=== PATIENT | female | born 2000 | race Caucasian/White ===

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

== ENCOUNTER → 2020-02-21 13:07 | Outpatient (CLI) | payer OTHER, SELFPAY ==
[2020-02-21 10:23] VITALS: BMI 24.3
[2020-02-21 18:20] LABS: Chlamydia Trachomatis by PCR Negative (Negative); Neisserai gonorrhoeae by PCR Negative (Negative); Probe Check PASS; Sample Adequacy Control PASS; Specimen Processing Control PASS
== END ==
PROVIDERS: PCP Family Medicine; Visit Provider Nurse Practitioner Women's Health
DX: A64 Unspecified sexually transmitted disease (principal)
CPT/HCPCS: 87491; 87591

== ENCOUNTER → 2021-07-08 17:52 | Outpatient (CLI) | payer OTHER, SELFPAY ==
[2021-07-08 20:03] LABS: Chlamydia Trachomatis by PCR Negative (Negative); Neisserai gonorrhoeae by PCR Negative (Negative); Probe Check PASS; Sample Adequacy Control PASS; Specimen Processing Control PASS
== END ==
PROVIDERS: PCP Family Medicine; Referring Provider Nurse Practitioner Women's Health; Visit Provider Nurse Practitioner Women's Health
DX: Z11.3 Encounter for screening for infections with a predominantly sexual mode of transmission (principal)
CPT/HCPCS: 87491; 87591

== ENCOUNTER → 2021-07-24 16:08 | Outpatient (CLI) | payer OTHER, SELFPAY | PROVIDERS: PCP Family Medicine; Referring Provider Nurse Practitioner Women's Health; Visit Provider Nurse Practitioner Women's Health | DX: N76.0 Acute vaginitis (principal) | CPT/HCPCS: 87070; 87205 ==

== ENCOUNTER 2021-10-30 16:29 | Emergency (ER) | payer OTHER, SELFPAY ==
[2021-10-30 16:30] VITALS: BP 140/81; PULSE 121; RESP 16; TEMP 36; O2SAT 100; BMI 24.9
--- NOTE | 2021-10-30 17:51 | ED.VIS.GI ---
HPI HPI - GI History of Present Illness Chief Complaint: Abd Pain Narrative Narrative: 21-year-old female presenting with abdominal pain and right flank pain. Patient states this has been ongoing intermittently for about 2 weeks and did come on abruptly. Patient denies dysuria or hematuria. She states that she is intermittently having these bouts of pain which feels like sharpness in her back and in her abdomen. She states she gets nauseous and sweaty with her pain. She denies history of kidney stones. Patient denies concern for because she states she is not sexually active. She has no vaginal complaints. She does state that she had one episode of emesis today as well as diarrhea one time today. Other medical history. No surgical history. Patient states that she has no known drug allergies [facility] Medical History Leukemia Home Medications desogestrel-e.estradiol 0.15 mg-0.02 mg(21)/e.estrad 0.01 mg(5) tablet 1 tab PO QDAY #84 tab 07/08/21 [Rx Last Taken Unknown] fluoxetine 20 mg PO QHS 10/30/21 [History Last Taken Unknown] ondansetron 4 mg PO Q8H PRN #10 tab 10/30/21 [Rx Last Taken Unknown] Allergy/AdvReac Type Severity Reaction Status Date / Time No Known Allergies Allergy Verified 10/30/21 16:32 Family History Grandmother Breast cancer Mother Thyroid disorder Father CVA (cerebral vascular accident) Brother Type 1 diabetes Social History current occupational status: student Smoking Status: Never smoker alcohol intake: never substance use type: does not use caffeine: Yes what type of physical activity do you participate in: other details: crossfit frequency: 1-2 times per week seatbelt use: always do you feel safe at home: Yes additional social history: pt works 4 jobs ROS ROS ED Constitutional Constitutional ED: Reports sweats; Denies chills or fever(s) ENT ENT ED: Denies rhinorrhea or sore throat Cardiovascular Cardiovascular: Denies chest pain or palpitations Respiratory/Chest Respiratory/Chest: Denies cough or dyspnea Gastrointestinal Gastrointestinal: Reports abdominal pain, diarrhea, nausea and vomiting Genitourinary Genitourinary ED: Denies dysuria or hematuria Musculoskeletal Musculoskeletal: Denies arthralgias or myalgias Integumentary Denies rash Neurologic Neurologic: Denies headache(s), paresthesias or weakness EXAM Physical Exam Const Vital Signs: 10/30/21 16:30 10/30/21 20:32 Temperature 96.8 F L Temperature Source Temporal Pulse Rate 121 H 78 Respiratory Rate 16 18 Blood Pressure 140/81 H 130/61 H Blood Pressure Mean 100 Pulse Ox 100 96 Oxygen Delivery Method Room Air Positive well nourished General Appearance ED: NAD; Negative for pallor HEENT Reports moist mucous membranes normocephalic and atraumatic Eyes PERRL and EOMs intact bilaterally General Eye ED: Negative for pale conjunctiva or scleral icterus Resp normal respiratory effort and clear to auscultation bilaterally Cardio regular rhythm Rate: tachycardic GI Palpation: tender LLQ Back/Spine General Back: CVA tenderness right Extremity full ROM General Extremety ED: Negative for edema General Extremity: Negative for edema Neuro CN's II-XII intact bilaterally Sensorium / Orientation: alert, oriented to person, oriented to place and oriented to time Psych mental status grossly normal and thought process normal Skin General Skin Exam: Negative for jaundice or pallor Lesions: no lesions Rashes: no rashes MDM MDM MDM Narrative Medical decision making narrative: Patient presenting with abdominal pain and right flank pain. I obtained a urinalysis which showed small amount of occult blood. CBC and BMP are unremarkable. Urine test is negative. Patient given morphine and Zofran for pain and nausea respectively and 500 cc of IV fluids. I obtained a CT abdomen pelvis without contrast due to flank pain and this does not identify any acute intra-abdominal process. On reevaluation patient is comfortable and currently not nauseous. I counseled her that we did not find anything pathologic and I would write her prescription for Zofran for home. She will alternate Tylenol and ibuprofen as needed. She is given return precautions. Impression: 1. Right flank pain Lab Data Attestation: I reviewed the patient's lab results. Labs: Laboratory Results - last 24 hr 10/30/21 10/30/21 10/30/21 16:56 16:56 17:45 WBC 7.1 RBC 5.01 Hgb 14.6 Hct 43.4 MCV 86.6 MCH 29.1 MCHC 33.6 RDW Std Deviation 38.5 RDW Coeff of [place] 12.3 Plt Count 314 MPV 9.7 Immature Gran % (Auto) 0.300 Neut % (Auto) 83.7 H Lymph % (Auto) 8.2 L [place] % (Auto) 6.2 Eos % (Auto) 1.3 Baso % (Auto) 0.3 Absolute Neuts (auto) 5.9 Absolute Lymphs (auto) 0.58 L Nucleated RBC % 0 Differential Comment SEE COMMENT Platelet Estimate ADEQUATE RBC Morphology N CHROM Anisocytosis RARE Sodium 137 Potassium 3.7 Chloride 105 Carbon Dioxide 25.0 Anion Gap 7 BUN 12 Creatinine 0.86 Estim Creat Clear Calc 96.87 Est GFR (MDRD) Af Amer 107 Est GFR (MDRD) Non-Af 89 BUN/Creatinine Ratio 14.0 Glucose 81 Calcium 8.9 Urine Color Yellow Urine Clarity Sl. Cloudy Urine pH 6.0 Ur Specific [place] 1.020 Urine Protein 30 H Urine Glucose (UA) Normal Urine Ketones 50 H Urine Occult Blood 10 H Urine Nitrite Negative Urine Bilirubin Negative Urine Urobilinogen Normal Ur Leukocyte Esterase 100 H Urine RBC 0 SEEN Urine WBC 0-5 SEEN Ur Squamous Epith Cells 0-5 SEEN Urine Bacteria 1+ Urine Mucus RARE Urine Test Negative Radiography Diagnostic Testing: Clinical Impression(s) from Imaging Studies Abdomen/Pelvis CT 10/30/21 18:52 IMPRESSION: No acute abnormalities in the abdomen or pelvis. Electronically Signed: Miguel Ortez MD at 19:59 EST Reading Location ID and State: [facility] / [place] Tel , Service support , Discharge Plan Triage Chief Complaint: Abd Pain ED Provider: Shayan Frank Dx/Rx/DC Orders Instructions: ED Flank Pain, Uncertain Cause Prescriptions: New ondansetron 4 mg tablet,disintegrating 4 mg PO Q8H PRN (Reason: nausea and vomiting) Qty: 10 RF: 0 No Action desog-e.estradiol/e.estradiol [Kariva (28)] 0.15-0.02 mgx21 /0.01 mg x 5 tablet 1 tab PO QDAY Qty: 84 RF: 4 fluoxetine 20 mg capsule 20 mg PO QHS RF: 0 Primary Care Provider: Ramos Cortez Referrals: Ramos Cortez DO [Primary Care Provider] - Disposition Disposition: Home, Self Care Discharge Date/Time: 10/30/21 20:33
[2021-10-30 17:52] LABS: Red Blood Cells-Urine 0 SEEN /hpf (0-5)
[2021-10-30 18:05] LABS: Color, Urine Yellow (Yellow); Glucose, Dipstick Normal (Normal); Ketone-Dipstick 50 mg/dl (Negative); Leukocyte Esterase-Dipstick 100 /ul (Negative); Nitrite-Dipstick Negative (Negative); Occult Blood-Urine 10 /ul (Negative); Protein-Dipstick 30 mg/dl (Negative); Urine Bilirubin Dipstick Negative (Negative); Urine Clarity Sl. Cloudy (Clear); Urine Urobilinogen Normal (Normal)
[2021-10-30 18:06] LABS: Absolute Lymphocyte Count 0.58 X10^3/uL (0.83-4.51); Absolute Neutrophil Count 5.9 X10^3/uL (2.0-7.7); Basophil# 0.02 X10^3/uL; Basophil% 0.3 % (0-1); Eosinophil# 0.09 X10^3/uL; Eosinophils% 1.3 % (0-5); Hematocrit 43.4 % (37-47); Hemoglobin 14.6 g/dL (12.0-15.0); Lymphocyte # 0.58 X10^3/ul (0.83-4.51); Lymphocyte % 8.2 % (19-41); Mean Corp Hgb Conc 33.6 g/dL (32-36); Mean Corpuscular Hgb 29.1 pg (27.0-32.0); Mean Corpuscular Volume 86.6 fL (81-99); Mean Platelet Vol. 9.7 fl (6.2-12.0); Monocyte# 0.44 X10^3/uL; Monocyte% 6.2 % (0-10); NRBC Flagged by Analyzer 0 % (0-5); Neutrophil % 83.7 % (47-70); POSITIVE DIFFERENTIAL YES; Platelet Count 314 K/mm3 (150-450); RBC Distribution Width CV 12.3 % (11.6-14.6); RBC Distribution Width SD 38.5 fl (35.1-43.9); Red Blood Count 5.01 M/mm3 (4.2-5.4); White Blood Count 7.1 K/mm3 (4.4-11.0)
[2021-10-30] MEDS: Morphine 4 MG/ML Syringe IV (18:07)
[2021-10-30] MEDS: Ketorolac 15 MG/ML Vial IV (18:07)
[2021-10-30] MEDS: Ondansetron 4 MG/2 ML Vial IV (18:07)
[2021-10-30 18:13] LABS: Bacteria 1+ /hpf (None Seen); Mucous, Urine RARE /hpf (<or=2+); Squamous Epithelial Cells - UA 0-5 SEEN /hpf (5-10)
[2021-10-30 18:14] LABS: Internal QC Validated? YES +Cl - CLEAR BKGD; Pregnancy, Urine Negative Negative; White Blood Cells 0-5 SEEN /hpf (0-5)
[2021-10-30 18:15] LABS: Anion Gap 7 (5-15); BUN 12 mg/dL (7-18); Calcium,Total 8.9 mg/dL (8.5-10.1); Chloride 105 mmol/L (98-107); Creatinine, Serum 0.86 mg/dL (0.55-1.02); EST Glomerular Filtration Rate 89 mL/min (>60); Est Glom Filt Rate - Afr Amer 107 mL/min (>60); Estimated Creatinine Clearance 96.87 ml/min; Glucose 81 mg/dL (74-106); Potassium 3.7 mmol/L (3.5-5.1); Sodium Level 137 mmol/L (136-145)
[2021-10-30 18:32] LABS: Differential Indicated SCAN CRITERIA MET
[2021-10-30 18:34] LABS: Anisocytosis RARE; Platelet Estimate ADEQUATE (ADEQ); Red Cell Morphology N CHROM NORMAL (NORM C&C)
--- NOTE | 2021-10-30 18:52 | CT_ITS ---
INDICATION: right flank pain EXAMINATION: CT Abdomen And Pelvis W/O Contrast Injection TECHNIQUE: Helically acquired images were obtained of the abdomen and pelvis without the use of IV contrast. A radiation dose optimization technique was used for this scan. Oral contrast: None. COMPARISON: None FINDINGS: Evaluation of the solid organs and vascular structures is limited without intravenous contrast. Visualized lung bases: Unremarkable Liver: Unremarkable Gallbladder: Unremarkable Spleen: Unremarkable Pancreas: Unremarkable Adrenal Glands: Unremarkable Kidneys: Unremarkable Vasculature: Unremarkable GI Tract: Unremarkable Lymphadenopathy: None Peritoneum: No ascites. Bladder: Unremarkable Reproductive organs: Unremarkable Bones/Soft tissues: No suspicious osseous or soft tissue lesions CT/Abdomen/Pelvis without Cont IMPRESSION: No acute abnormalities in the abdomen or pelvis. Electronically Signed: Miguel Ortez MD at 19:59 EST ,
[2021-10-30 20:32] VITALS: BP 130/61; PULSE 78; RESP 18; O2SAT 96
== END 2021-10-30 20:33 | disposition home or self-care (01) ==
PROVIDERS: Emergency Provider Student in an Organized Health Care Education/Training Program; PCP Family Medicine; Visit Provider Student in an Organized Health Care Education/Training Program
DX: R10.9 Unspecified abdominal pain (principal)
CPT/HCPCS: 74176; 80048; 81001; 81025; 85025; 96374; 96375; 99283; A4216; J2405

== ENCOUNTER 2021-11-18 17:43 | Outpatient (CLI) | payer OTHER, SELFPAY ==
--- NOTE | 2021-11-18 17:49 | CT_ITS ---
STUDY: CT Abdomen And Pelvis W/ Contrast Injection 11/18/2021 6:48 PM REASON FOR EXAM: Female, 21 years old. ABDOMINAL PAIN RLQ PAIN TECHNIQUE: Transaxial images were obtained with oral contrast, and with Oral and IV Readi-CAT 100mL Isovue-370 intravenous contrast. Individualized dose optimization techniques were used for this CT. COMPARISON: 10.30.21 FINDINGS: The visualized lung bases are unremarkable. The visualized portions of the heart are within normal limits. Normal liver. Normal gallbladder and extrahepatic biliary system. Normal spleen. Normal pancreas. Normal bilateral adrenal glands. No acute findings of the right kidney. No acute findings of the left kidney. Normal visualized stomach. Normal small intestine. Stool throughout the colon. The appendix is visualized and appears normal. There are no acute findings of the abdominal aorta. Normal inferior vena cava. Subcentimeter mesenteric lymph nodes. Normal urinary bladder. Normal abdominal wall. Normal osseous structures. IMPRESSION: (NOT LISTED IN ORDER OF SIGNIFICANCE) The appendix is visualized and appears normal. Constipation. Other findings as above. Electronically Signed: Keaton Walker MD at 18:50 EST , CT/Abdomen/Pelvis WITH Contrast
== END 2021-11-18 23:59 | disposition home or self-care (01) ==
PROVIDERS: PCP Family Medicine; Visit Provider Family Medicine
DX: R10.31 Right lower quadrant pain (principal)
CPT/HCPCS: 74177; Q9967

== ENCOUNTER → 2022-12-11 | Outpatient (CLI) | payer OTHER, SELFPAY ==
[2022-12-15 22:07] LABS: Chlamydia By Nucleic Acid AMP Negative (Negative)
[2022-12-16 08:14] LABS: Gonococcus By Nucleic Acid AMP Negative (Negative)
[2022-12-21 16:30] LABS: HPV Reflexed? NOT INDICATED
== END | disposition home or self-care (01) ==
LOC: LABSPEC 16:36
PROVIDERS: PCP Family Medicine; Referring Provider Registered Nurse; Visit Provider Registered Nurse
DX: Z20.2 Contact with and (suspected) exposure to infections with a predominantly sexual mode of transmission (principal); Z12.4 Encounter for screening for malignant neoplasm of cervix
CPT/HCPCS: 87491; 87591; 88175; G0145

== ENCOUNTER 2023-03-23 01:30 | Emergency (ER) | payer OTHER, SELFPAY ==
[2023-03-23 01:31] VITALS: BP 139/101; PULSE 66; RESP 17; TEMP 35.8; O2SAT 99; BMI 34.5
--- NOTE | 2023-03-23 02:14 | EX.ED.DYSGE1 ---
HPI History of Present Illness Chief Complaint: General Illness Informant: patient and parent Narrative Narrative: Patient here with mother increasing left-sided neck pain rating to the side of her head. Denies trauma. Has been having left shoulder pain for last couple months she is right-hand dominant. 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 There is no specific trauma. She states she seen a chiropractor in the past with manipulations that does help her symptoms. Midol taken at noon and ibuprofen 6 PM with mild relief of symptoms return. Worse with head turning. Denies head trauma. PFSH PFS Medical History Leukemia Home Medications desogestrel-e.estradiol 0.15 mg-0.02 mg(21)/e.estrad 0.01 mg(5) tablet (Kariva (28)) 1 tab PO QDAY #84 tabs 12/11/22 [Rx Last Taken Unknown] escitalopram oxalate 20 mg tablet 20 mg PO DAILY 03/23/23 [History Last Taken Unknown] fluoxetine 20 mg capsule 20 mg PO PRN PRN Migraines 03/23/23 [History Last Taken Unknown] Allergy/AdvReac Type Severity Reaction Status Date / Time No Known Allergies Allergy Verified 03/23/23 01:40 Family History Grandmother Breast cancer Mother Thyroid disorder Father CVA (cerebral vascular accident), Onset Age: 50 Brother Type 1 diabetes Social History current occupational status: student Smoking Status: Never smoker alcohol intake: never substance use type: does not use caffeine: Yes what type of physical activity do you participate in: other details: crossfit frequency: 1-2 times per week seatbelt use: always do you feel safe at home: Yes additional social history: pt works 4 jobs ROS ROS ED Constitutional Constitutional ED: Denies chills, fever(s) or sweats Eyes Eyes: Denies change in vision ENT ENT ED: Denies dysphagia or sore throat Cardiovascular Cardiovascular: Denies chest pain, leg edema, palpitations or racing heartbeat Respiratory/Chest Respiratory/Chest: Denies cough, dyspnea or dyspnea on exertion Gastrointestinal Gastrointestinal: Denies abdominal pain, diarrhea, nausea or vomiting Genitourinary Genitourinary ED: Denies dysuria, hematuria or urinary frequency Musculoskeletal Musculoskeletal: Reports extremity pain and neck pain; Denies back pain Integumentary Denies rash or wounds Neurologic Neurologic: Reports headache(s); Denies paresthesias or weakness EXAM Physical Exam Const Vital Signs: 03/23/23 01:31 03/23/23 01:34 Temperature 96.5 F L Temperature Source Temporal Pulse Rate 66 Respiratory Rate 17 Respiratory Effort Normal Respiratory Pattern Normal Blood Pressure 139/101 H Blood Pressure Mean 113 Pulse Ox 99 Oxygen Delivery Method Room Air Positive well nourished and well developed General Appearance ED: well developed and NAD HEENT Reports moist mucous membranes normocephalic and atraumatic Eyes PERRL, EOMs intact bilaterally and conjunctivae normal General Eye ED: Yes normal appearance of both eyes Neck no lymphadenopathy and supple Neck Narrative: No meningismus. Tender palpation left cervical spine reproducible lower cervical is rotated side bent to the left reproducible. General: Negative for tenderness Chest Wall Chest: Negative for tenderness Resp normal respiratory effort and normal air movement Effort and Inspection: symmetric chest movement; Negative for respiratory distress Cardio regular rate, regular rhythm and no murmurs Peripheral Pulses: pulses 2+ throughout GI normal to inspection, nondistended, normoactive bowel sounds and non-tender Palpation: Negative for guarding or rebound tenderness present Back/Spine no CVA tenderness and no thoracic nor lumbar tenderness Extremity Extremity Narrative: Left upper extremity: Positive empty can positive speeds test. No deformities. Skin intact. Neuro vas intact. General Extremety ED: Negative for edema or tenderness General Extremity: Negative for edema Neuro oriented x3 and no sensory deficits noted Sensorium / Orientation: awake and alert Skin no rashes or lesions noted and no wounds MDM MDM MDM Narrative Medical decision making narrative: Interventions / MDM: Differential diagnosis: Somatic dysfunction cervical spine, tension headache, rotator cuff strain, biceps tendinitis. Diagnosis considered but do not suspect: No meningismus for concerns of meningitis. My EKG interpretation: N/A Imaging independently reviewed and interpreted by myself: N/A External documents reviewed: N/A Test considered but not ordered:N/A ED course: Patient exam concerns for somatic function cervical spine causing tension headaches. Shoulder examination notes concerns for rotator cuff strain along with biceps tendinitis. Perform osteopathic manipulation in the room with facility positional release along with HVLA of cervical spine with improvement of symptoms and motion. She will continue fluids ibuprofen. Discussed rotator cuff strengthening techniques. She will follow-up with her PCP. She also has seen chiropractor in the past for which she can follow-up for continued care if needed. All questions were answered. Re-evaluation: stable Disposition discussed with patient/family/significant other: Patient and mother Case discussed with consulting clinician: N/A Discharge Plan Triage Chief Complaint: General Illness ED Provider: Collins Orozco Dx/Rx/DC Orders Clinical Impression: Neck muscle strain, Cervical (neck) region somatic dysfunction, Tension headache, Rotator cuff strain, Biceps tendinitis Instructions: Rotator Cuff Injury, Tension Headaches, Biceps Tendonitis, ED Neck Sprain or Strain Prescriptions: No Action desog-e.estradiol/e.estradiol [Tomyiva (28)] 0.15-0.02 mgx21 /0.01 mg x 5 tablet 1 tab PO QDAY Qty: 84 4RF fluoxetine 20 mg capsule 20 mg PO PRN PRN (Reason: Migraines) Label Comments: TAKE 1 CAPSULE BY MOUTH ONCE DAILY escitalopram oxalate 20 mg tablet 20 mg PO DAILY Primary Care Provider: Kita Warren Referrals: Ramos Cortez DO [Med Staff - Contact Lens Inspector] - 1 Week if not improving Activity Restrictions/Additional Instructions: Status post facilitated positional release and HVLA of cervical spine with improvement. Continue ibuprofen and oral fluids. Shoulder exam concerns for rotator cuff strain along with biceps tendinitis. Perform exercises as shown. Follow-up with your doctor. May follow-up with your chiropractor for continued management of somatic dysfunction. Disposition Disposition: Home, Self Care Discharge Date/Time: 03/23/23 02:29
== END 2023-03-23 02:29 | disposition home or self-care (01) ==
LOC: ED 02:19
PROVIDERS: Emergency Provider Emergency Medicine; PCP Internal Medicine; Visit Provider Emergency Medicine
DX: S16.1XXA Strain of muscle, fascia and tendon at neck level, initial encounter (principal); M99.01 Segmental and somatic dysfunction of cervical region; G44.209 Tension-type headache, unspecified, not intractable; M75.20 Bicipital tendinitis, unspecified shoulder; S46.012A Strain of muscle(s) and tendon(s) of the rotator cuff of left shoulder, initial encounter; Z79.899 Other long term (current) drug therapy; X58.XXXA Exposure to other specified factors, initial encounter
CPT/HCPCS: 99283

== ENCOUNTER → 2023-05-25 | Outpatient (CLI) | payer OTHER, SELFPAY ==
--- NOTE | 2023-05-25 16:31 | CT_ITS ---
INDICATION: RADICULOPATHY, LUMBER REGION, fell off horse last night, right sided pain. EXAMINATION: CT SPINE - CT Spine Lumbar W/O Contrast Injection COMPARISON: None. A radiation dose optimization technique was used for this scan. Findings: Serial CT axial images through the lumbar spine, with coronal and sagittal reformatted series. BONES: No evidence of lumbar spine fracture or subluxation. No concerning bony lesion or abnormal sclerosis to suggest lesion. DISCS/JOINTS: No significant degenerative change. SOFT TISSUES: Soft tissue structures are unremarkable. CT/Spine Lumbar without Contrast IMPRESSION: Lumbar spine without evidence of acute fracture. No neuroforaminal narrowing or central bony spinal canal stenosis appreciated. Electronically Signed: Campos Najera MD at 23:48 EDT ,
--- NOTE | 2023-05-25 16:31 | CT_ITS ---
INDICATION: RADICULOPATHY, LUMBAR REGION, fell off horse last night, right sided pain. EXAMINATION/TECHNIQUE: X-RAY - CT Pelvis W/O Contrast Injection COMPARISON: Lumbar spine CT same day. Abdominal CT 11/18/2021. FINDINGS: Noncontrast serial CT axial images through the pelvis and bilateral hips with coronal and sagittal reformatted series. BONES: Normal anatomic alignment without evidence of fracture or subluxation. No concerning bony lesion or abnormal sclerosis to suggest lesion. JOINTS: No significant degenerative change. SOFT TISSUES: Unremarkable. CT/Pelvis without IV Contrast IMPRESSION: No acute osseous abnormality of the pelvis or bilateral hips. Electronically Signed: Campos Najera MD at 23:52 EDT ,
== END | disposition home or self-care (01) ==
LOC: CT 16:21
PROVIDERS: PCP Internal Medicine; Referring Provider Physician Assistant Surgical; Visit Provider Physician Assistant Surgical
DX: M54.16 Radiculopathy, lumbar region (principal); R20.2 Paresthesia of skin; S70.01XA Contusion of right hip, initial encounter
CPT/HCPCS: 72131; 72192

== ENCOUNTER 2024-02-17 22:48 | Emergency (ER) | payer OTHER, SELFPAY ==
[2024-02-17 22:48] VITALS: BP 136/96; PULSE 84; RESP 16; TEMP 36.7; O2SAT 99; BMI 32.6
--- NOTE | 2024-02-17 22:55 | EDS_ITS ---
HPI History of Present Illness Chief Complaint: Abscess Informant: patient Onset/Context/Timing Onset: Days Context: Gradual Onset Narrative Narrative: Patient presents with an abscess to her left wrist. Patient got a tattoo to the ulnar side of her left wrist approximately 2 weeks ago. She was wearing her Apple Watch when she noted that the band was rubbing the site and causing some irritation. She is been covering with a bandage but has gone on to develop a focal abscess. She has not been able to get any drainage from the area. Today she noted a slight erythematous streak up her forearm and came in for evaluation. She denies fever or chills. 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 [facility] Medical History Leukemia Home Medications ?Medication ?Instructions ?Recorded ?Last Taken ?Type escitalopram oxalate 20 mg tablet 20 mg PO DAILY 03/23/23 Unknown History fluoxetine 20 mg capsule 20 mg PO PRN PRN Migraines 03/23/23 Unknown History desogestrel-e.estradiol 0.15 1 tab PO DAILY #84 TABLETS 01/07/24 Unknown Rx mg-0.02 mg(21)/e.estrad 0.01 mg(5) tablet (Kariva (28)) cephalexin 500 mg capsule 500 mg PO Q6 #40 CAPSULES 02/17/24 Unknown Rx sulfamethoxazole 800 1 tab PO BID #20 tabs 02/17/24 Unknown Rx mg-trimethoprim 160 mg tablet (Bactrim DS) Allergy/AdvReac Type Severity Reaction Status Date / Time No Known Allergies Allergy Verified 02/17/24 22:51 Family History Grandmother Breast cancer Mother Thyroid disorder Father CVA (cerebral vascular accident), Onset Age: 50 Brother Type 1 diabetes Social History current occupational status: student Smoking Status: Never smoker alcohol intake: never substance use type: does not use caffeine: Yes what type of physical activity do you participate in: other details: crossfit frequency: 1-2 times per week seatbelt use: always do you feel safe at home: Yes additional social history: pt works 4 jobs ROS ROS ED Constitutional Constitutional ED: Denies chills or fever(s) ENT ENT ED: Denies rhinorrhea or sore throat Respiratory/Chest Respiratory/Chest: Denies cough Gastrointestinal Gastrointestinal: Denies abdominal pain, nausea or vomiting Musculoskeletal Musculoskeletal: Reports extremity pain; Denies back pain Integumentary Reports abscess; Denies Abrasions Neurologic Neurologic: Denies headache(s) or weakness Psychiatric Psychiatric: Denies anxiety or depression Allergic/Immunologic Allergic/Immunologic ED: Denies lip swelling or urticaria EXAM Physical Exam Const Vital Signs: 02/17/24 22:48 Temperature 98.1 F Temperature Source Temporal Pulse Rate 84 Respiratory Rate 16 Blood Pressure 136/96 H Blood Pressure Mean 109 Pulse Ox 99 Oxygen Delivery Method Room Air Positive well nourished and well developed General Appearance ED: well developed HEENT Reports moist mucous membranes Eyes EOMs intact bilaterally Chest Wall inspection of chest normal and palpation of chest normal Resp normal respiratory effort and clear to auscultation bilaterally Cardio regular rate and regular rhythm GI non-tender Palpation: soft Extremity Extremity Narrative: Patient has a 2 cm round focal abscess along the ulnar side of the left wrist. There is a slight lymphangitic streak onto the volar forearm. Full range of motion at the wrist without difficulty. Good cap refill and sensation distally. Neuro oriented x3 and no sensory deficits noted Motor Exam: strength 5/5 throughout Psych mental status grossly normal MDM MDM MDM Narrative Medical decision making narrative: Patient given a dose of Bactrim and Keflex here. Patient consented for I&D. 1 cc of 1% lidocaine is infused locally to the abscess site. Stab incision made with a #11 blade. Curved hemostats were used to explore the cavity and break up loculations. There is minimal drainage of pus at this time. She still has a large area of induration. Patient will treat with a 10-day course of Bactrim and Keflex. Wound care discussed. Return instructions provided. Discharge Plan Triage Chief Complaint: Abscess ED Provider: Clara Patton Dx/Rx/DC Orders Clinical Impression: Cutaneous abscess Instructions: ED Abscess Incision And Drainage Prescriptions: New sulfamethoxazole-trimethoprim [Bactrim DS] 800-160 mg tablet 1 tab PO BID Qty: 20 0RF cephalexin 500 mg capsule 500 mg PO Q6 Qty: 40 0RF No Action fluoxetine 20 mg capsule 20 mg PO PRN PRN (Reason: Migraines) Patient Comments: TAKE 1 CAPSULE BY MOUTH ONCE DAILY escitalopram oxalate 20 mg tablet 20 mg PO DAILY desog-e.estradiol/e.estradiol [Kariva (28)] 0.15-0.02 mgx21 /0.01 mg x 5 tablet 1 tab PO DAILY Qty: 84 4RF Primary Care Provider: Rachael Ann NP Referrals: Kita Warren MD [Med Staff - Head Of Talent Management] - Rachael Ann NP, ICT BUSINESS ANALYST-C [Primary Care Provider] - 1 Week Print Language: French Disposition Disposition: Home, Self Care
[2024-02-17] MEDS: Lidocaine 1% (20 ml mdv) 20 ML Vial INFILT (23:08)
[2024-02-17] MEDS: Cephalexin 500 MG Capsule PO (23:09)
[2024-02-17] MEDS: Smz/Tmp Ds Tablet 1 TABLET PO (23:09)
[2024-02-17 23:20] VITALS: BP 129/79; PULSE 87; RESP 16; TEMP 36.7; O2SAT 99
== END 2024-02-17 23:21 | disposition home or self-care (01) ==
PROVIDERS: Emergency Provider Emergency Medicine; PCP Internal Medicine; Visit Provider Emergency Medicine
DX: L02.414 Cutaneous abscess of left upper limb (principal)
CPT/HCPCS: 10060; 99283

== ENCOUNTER → 2024-11-24 | Outpatient (CLI) | payer OTHER, SELFPAY ==
--- NOTE | 2024-11-24 10:14 | RAD_ITS ---
PROCEDURE: SHOULDER MIN 2 VIEWS REASON FOR EXAM: Rule out fracture TECHNIQUE: One (1) view of each shoulder COMPARISON: None. FINDINGS: LEFT SHOULDER: No fracture. No suspicious bone lesion. Normal alignment of the acromioclavicular and glenohumeral joints. Soft tissues are unremarkable. RAD/Shoulder min 2 Views IMPRESSION: No acute osseous abnormality in the left shoulder Reading Location: [facility]
== END | disposition home or self-care (01) ==
PROVIDERS: PCP Internal Medicine; Referring Provider Nurse Practitioner Family; Visit Provider Nurse Practitioner Family
DX: M25.512 Pain in left shoulder (principal); Z91.81 History of falling
CPT/HCPCS: 73030

== ENCOUNTER 2025-05-25 13:20 | Emergency (ER) | payer OTHER, SELFPAY ==
[2025-05-25 13:21] VITALS: BP 124/85; PULSE 98; RESP 18; TEMP 36.6; O2SAT 100; BMI 34.4
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
== END 2025-05-25 14:10 | disposition home or self-care (01) ==
LOC: ED 14:00
PROVIDERS: Emergency Provider Emergency Medicine; PCP Internal Medicine; Visit Provider Emergency Medicine
DX: Z04.1 Encounter for examination and observation following transport accident (principal)
CPT/HCPCS: 99284

== ENCOUNTER → 2025-06-27 | Outpatient (CLI) | payer OTHER, SELFPAY ==
[2025-06-28 20:08] LABS: Chlamydia By Nucleic Acid AMP Negative (Negative); Gonococcus By Nucleic Acid AMP Negative (Negative)
== END | disposition home or self-care (01) ==
LOC: LABSPEC 11:50
PROVIDERS: PCP Internal Medicine; Visit Provider Nurse Practitioner Women's Health
DX: Z01.419 Encounter for gynecological examination (general) (routine) without abnormal findings (principal); Z20.2 Contact with and (suspected) exposure to infections with a predominantly sexual mode of transmission
CPT/HCPCS: 87491; 87591